=== PATIENT | female | born 1995 | race Caucasian/White ===

== ENCOUNTER 2017-04-24 16:04 | Emergency (ER) | payer OTHER ==
[~2017-04-24] VITALS: Ht 154.9 cm; Wt 102.1 kg
[~2017-04-24 16:04] MED LIST: COZAAR 25 MG TA25 MG PO; IBUPROFEN 800800 MG PO; MEDROLDOSEPACK PO; MUCINEX600 MG PO; NOHOMEMEDICATIONS; PROMETH-CODEIN 65 ML PO; VENTOLIN HFA 1818 GM INH; ZPAK PO
[2017-04-24 16:45] LABS: URINE BLOOD NEGATIVE (Negative); URINE CLARITY CLEAR; URINE COLOR YELLOW; URINE GLUCOSE-RANDOM NEGATIVE (Negative); URINE KETONES NEGATIVE (Negative); URINE LEUKOCYTES-REFLEX NEGATIVE (Negative); URINE NITRITE-REFLEX NEGATIVE (Negative); URINE PROTEIN NEGATIVE (Negative); URINE SPECIFIC GRAVITY >= 1.030 (1.005-1.030)
[2017-04-24 16:49] LABS: URINE BILIRUBIN 1+ (Negative)
[2017-04-24 16:51] LABS: ICTOTEST (BILI CONFIRMATORY) Negative (Negative)
[2017-04-24] MEDS ORDERED: BENTYL 20 MG TA20 M1 PO (18:04)
[2017-04-24] MEDS ORDERED: ZOFRAN ODT4 MG PO (18:04)
[2017-04-24] MEDS ORDERED: CITRATE OF MAG296 ML PO (18:04)
[2017-04-24] MEDS ORDERED: COLACE 100 MG100 MG PO (18:04)
[2017-04-24 18:15] VITALS: BP 105/69
== END 2017-04-24 18:16 | disposition home or self-care (01) ==
LOC: M.ERS 16:04
PROVIDERS: Physician Assistant
DX: R11.2 Nausea with vomiting, unspecified (principal); K59.00 Constipation, unspecified; J45.909 Unspecified asthma, uncomplicated; I10 Essential (primary) hypertension; Z98.890 Other specified postprocedural states; Z88.8 Allergy status to other drugs, medicaments and biological substances